=== PATIENT | female | born 2000 | race Two or more races ===

== ENCOUNTER 2021-10-30 21:30 | Emergency (ER) | payer MEDICAID, OTHER ==
[~2021-10-30] VITALS: Ht 154.9 cm; Wt 77.6 kg
[2021-10-30 21:30] VITALS: BP 138/84
[2021-10-30 23:11] LABS: Urine Bacteria FEW /hpf (None Seen); Urine Blood Negative /uL (Negative); Urine Specific Gravity 1.021 (1.001-1.035); Urine WBC 3 /hpf (0 - 5)
== END 2021-11-01 07:15 | disposition left against medical advice (07) ==
LOC: ER 21:34
DX: R10.9 Unspecified abdominal pain (principal); M54.50 Low back pain, unspecified; R30.0 Dysuria; Z53.21 Procedure and treatment not carried out due to patient leaving prior to being seen by health care provider
CPT/HCPCS: 81001; 81025